=== PATIENT | male | born 1940 | race Caucasian/White ===

== ENCOUNTER 2016-12-20 07:07 | Inpatient (IN) | payer MEDICARE, OTHER ==
[2016-12-17 15:25] VITALS: BMI 23.0
[~2016-12-20 07:07] MED LIST: DEXAMETHASONE SOD PHOSPHATE 10 MG/ML 1 ML VIAL IV ONE; HEPARIN SODIUM,PORCINE 5,000 UNIT/ML 1 ML VIAL SQ ONE; HYDROmorphone 1 MG/ML 1 ML SYRINGE IVP PRN; LIDOCAINE 1% 20 ML VIAL (10MG/ML) FOR IV START INTRADERMA PRN; MIDAZOLAM 2 MG/2 ML VIAL IV PRN; ONDANSETRON 4 MG/2 ML VIAL IVP ONE; SCOPOLAMINE 1.5MG/72HR PATCH TRANSDERM ONE; ceFAZolin 2 GM in SODIUM CHLORIDE 0.9% 100 ML IVPB ONE
[2016-12-20] MEDS: LACTATED RINGERS 1,000 ML IV SCH (11:50)
[2016-12-20] MEDS ORDERED: LIDOCAINE 1% 20 ML VIAL (10MG/ML) FOR IV START INTRADERMA ONE (11:51)
--- NOTE | 2016-12-20 11:56 | P.GSHP ---
History of Present Illness H&P Date: 12/20/16 CHIEF COMPLAINT: Barretts esophagus and paraesophageal hiatal hernia. HISTORY OF PRESENT ILLNESS: The patient is a 76-year-old male with GERD including Barretts and paraesophageal hiatal hernia. He has completed a manometry and upper endoscopy. He now presents for surgical repair of his hiatal hernia. PAST MEDICAL HISTORY: Please see list. PAST SURGICAL HISTORY: Please see list. MEDICATIONS: Please see list. ALLERGIES: Please see list. SOCIAL HISTORY: No illicit drug use FAMILY HISTORY: No reports of Crohn disease or ulcerative colitis. REVIEW OF ORGAN SYSTEMS: CONSTITUTIONAL: GI: Decreased gastroesophageal reflux disease. History of Mane's. Constitutional: No fevers or chills. HEENT: Difficulty with hearing. No troubles with vision. Cardiovascular: Denies any current chest pain on exertion. : Increased urinary frequency. Musculoskeletal: Joint stiffness including back pain. Skin: History of squamous cell cancer. LYMPHATIC: The patient denies any lumps and bumps around the neck. ENDOCRINE: Denies any thyroid disorders. Denies any blood sugar glucose intolerance. RESPIRATORY: Denies pneumonia. Denies any troubles with breathing or dyspnea on exertion. NEUROLOGIC: Denies any numbness or tingling along the distal extremities. No seizure disorders or headaches. PSYCHIATRIC: Denies any depression or suicidal ideation. HEMATOLOGIC: Denies any abnormal bleeding or bruising. BREASTS: Denies any breast lumps, pain or nipple discharge. He has completed cardiac clearance. PHYSICAL EXAM: VITAL SIGNS: Stable GENERAL: Well-developed and pleasant in no acute distress. HEENT: No scleral icterus. Extraocular movements grossly intact. Moist buccal mucosa. NECK: Supple without lymphadenopathy. CHEST: Unlabored respirations. Equal bilateral excursions. CARDIOVASCULAR: Regular rate and rhythm. Distal 2+ pulses. ABDOMEN: Soft, nondistended. MUSCULOSKELETAL: No clubbing, cyanosis, or edema. ASSESSMENT: 1. Mane's esophagus. 2. Paraesophageal hiatal hernia. PLAN: 1. Benefits and risks of laparoscopic paraesophageal hiatal hernia repair with mesh placement were also reviewed. 2. Over night hospital inpatient was advised. 3. DVT prophylaxis. 4. Antibiotics prophylaxis. Past Medical History Past Medical History: GERD/Reflux Additional Past Medical History / Comment(s): myocardial bridging,occ. intermittent increased heart rate with increased activity,Mane's esophagus, has had 3 episodes urinary retention and had to be seen in ER over yrs-not sure of cause. 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.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) Past Anesthesia/Blood Transfusion Reactions: Motion Sickness Additional Past Anesthesia/Blood Transfusion Reaction / Comment(s): "very slow to wake up" Past Psychological History: No Psychological Hx Reported Smoking Status: Never smoker Past Alcohol Use History: None Reported Past Drug Use History: None Reported - Past Family History Mother Family Medical History: No Reported History Father Family Medical History: Myocardial Infarction ([place]) Medications and Allergies Home Medications Medication Instructions Recorded Confirmed Type Aspirin 81 mg PO DAILY 03/16/16 12/17/16 History Cholecalciferol [Vitamin D3] 2,000 unit PO DAILY 03/16/16 12/17/16 History Diltiazem HCl [Cardizem Cd] 120 mg PO QAM 03/16/16 12/17/16 History Multivitamins, Thera [Multivitamin] 1 tab PO DAILY 03/16/16 12/17/16 History Nitroglycerin Sl Tabs [Nitrostat] 0.4 mg SUBLINGUAL DIRECTED PRN 03/16/1603/30 History Omeprazole [PriLOSEC] 20 mg PO AC-BRKFST 12/17/16 12/17/16 History Allergies Allergy/AdvReac Type Severity Reaction Status Date / Time xeroform Allergy Intermediate Nausea & Uncoded 12/17/16 15:12 Vomiting Surgical - Exam Vital Signs Temp Pulse Resp BP Pulse Ox 97.0 F L 57 L 16 147/76 99 12/20/16 11:35 12/20/16 11:35 12/20/16 11:35 12/20/16 11:35 12/20/16 11:35
[2016-12-20] MEDS ORDERED: ACETAMINOPHEN IV (For NPO) 1,000 MG in EMPTY BAG 1 BAG IVPB STA (12:01)
[2016-12-20 12:12] LABS: Basophils % (A) 1 %; CH 31.6; CHCM 33.3; Eosinophils # (A) 0.1 k/uL (0-0.7); Eosinophils % (A) 1 %; HCT 47.3 % (39.0-53.0); HDW 2.59; HGB 15.2 gm/dL (13.0-17.5); Luc # (Auto) 0.18; Luc % (Auto) 3; Lymphocytes # (A) 1.4 k/uL (1.0-4.8); Lymphocytes % (A) 20 %; MCH 30.8 pg (25.0-35.0); MCHC 32.2 g/dL (31.0-37.0); MCV 95.4 fL (80.0-100.0); Mean Platelet Volume 6.7; Monocytes # (A) 0.3 k/uL (0-1.0); Monocytes % (A) 4 %; Neutrophils # (A) 5.1 k/uL (1.3-7.7); Neutrophils % (A) 72 %; RBC 4.95 m/uL (4.30-5.90); RDW 12.5 % (11.5-15.5); WBC 7.1 k/uL (3.8-10.6); WBC (Perox) 7.45
[2016-12-20 12:20] LABS: Anion Gap 9 mmol/L; Calcium 9.2 mg/dL (8.4-10.2); Carbon Dioxide 26 mmol/L (22-30); Chloride 106 mmol/L (98-107); Glucose 90 mg/dL (74-99); Non-African American GFR(MDRD) >60 (>60 ml/min/1.73 sqM); Sodium 141 mmol/L (137-145); Total Bilirubin 0.9 mg/dL (0.2-1.3); Total Protein 6.6 g/dL (6.3-8.2)
[2016-12-20 12:28] LABS: AST 27 U/L (17-59); Blood Urea Nitrogen 15 mg/dL (9-20); Potassium 5.1 mmol/L (3.5-5.1)
[2016-12-20] MEDS ORDERED: ACETAMINOPHEN IV (For NPO) 1,000 MG/100 ML VIAL ONE (12:28)
[2016-12-20] MEDS ORDERED: fentaNYL (PF) 50 MCG/ML 2 ML AMP ONE (12:28)
[2016-12-20] MEDS ORDERED: LIDOCAINE 1% INJ 10MG/ML (20 ML MDV) ONE (12:28)
[2016-12-20] MEDS ORDERED: ROCURONIUM BROMIDE 10 MG/ML 10 ML VIAL IV ONE (12:28)
[2016-12-20] MEDS ORDERED: GLYCOPYRROLATE 0.2 MG/ML 2 ML VIAL ONE (12:28)
[2016-12-20] MEDS ORDERED: PROPOFOL 10 MG/ML 20 ML VIAL IV ONE (12:28)
[2016-12-20] MEDS ORDERED: PHENYLEPHRINE-0.9% NACL SYG 1 MG/10 ML SYRINGE ONE (12:28)
[2016-12-20] MEDS ORDERED: MIDAZOLAM 2 MG/2 ML VIAL ONE (12:28)
[2016-12-20] MEDS ORDERED: NEOSTIGMINE 1 MG/ML 10 ML VIAL ONE (12:28)
[2016-12-20 12:29] LABS: ALT 35 U/L (21-72); Alkaline Phosphatase 51 U/L (38-126)
[2016-12-20] MEDS ORDERED: BUPIVACAIN-EPI 0.25%-1:200,000 30 ML VIAL SQ ONE (13:04)
[2016-12-20] MEDS ORDERED: LACTATED RINGERS 1,000 ML IV ONE ×2 (13:52→14:55)
[2016-12-20] MEDS ORDERED: ONDANSETRON 4 MG/2 ML VIAL IVP PRN (15:19)
[2016-12-20] MEDS ORDERED: NALOXONE 0.4 MG/ML 1 ML VIAL IV PRN (15:19)
[2016-12-20] MEDS ORDERED: HYOSCYAMINE ORAL DROPS 1.875 MG/15 ML BOTTLE PO PRN (15:19)
[2016-12-20] MEDS ORDERED: SIMETHICONE 40 MG/0.6 ML DROPS 2,000 MG/30 ML BOTTLE PO PRN (15:19)
[2016-12-20] MEDS ORDERED: HYDROmorphone 1 MG/ML 1 ML SYRINGE IVP PRN (15:19)
--- NOTE | 2016-12-20 15:19 | P.OP ---
Date of Procedure: 12/20/16 Description of Procedure: SURGEON: CARON CANAS MD NURSING HOME ADMISSIONS DIRECTOR: None. PREOPERATIVE DIAGNOSES: 1. Mane's esophagus. 2. Paraesophageal hiatal hernia, incarcerated with intermittent obstruction. 3. Epigastric abdominal pain, intermittent. 4. Gastroesophageal reflux disease. 5. Migraines. 6. Hypertensive heart disease with cardiomyopathy. 7. Previous cardiac catheterization with placement of cardiac stent. POSTOPERATIVE DIAGNOSES: 1. Mane's esophagus, long segment. 2. Paraesophageal hiatal hernia, incarcerated with intermittent obstruction, 5 cm. 3. Epigastric abdominal pain, intermittent. 4. Gastroesophageal reflux disease. 5. Migraines. 6. Hypertensive heart disease with cardiomyopathy. 7. Previous cardiac catheterization with placement of cardiac stent. OPERATION: 1. Laparoscopic reduction and repair of incarcerated paraesophageal hiatal hernia with mesh, Bard Biopatch A 8 x 8 cm. 2. Intraoperative esophagogastroduodenoscopy with biopsies along antrum. ANESTHESIA: General with 30 mL 0.25% Marcaine with epinephrine. ESTIMATED BLOOD LOSS: 5 mL COMPLICATIONS: None. INDICATIONS: The patient is a 76-year-old male with long-standing history of gastroesophageal reflux disease. An upper endoscopy demonstrating a long segment Mane's esophagus including a incarcerated paraesophageal diaphragmatic hiatal hernia. Intraoperative esophagogastroduodenoscopy demonstrated a paraesophageal hiatal hernia with incarceration. He completed a manometry demonstrating esophageal length over 3.0 cm and pressures over 20 mmHg pressure. Surgical intervention with a paraesophageal hiatal hernia repair and mesh was described. Risks and benefits including but not limited to collapse of the lung, dysphagia, recurrence were reviewed in detail. Informed consent was obtained as all benefits and risks were described. Separately, as the patient had a suspicious history of malignant hyperthermia, he was prepped accordingly per anesthesia. DESCRIPTION: Patient was brought into the operating room, laid in supine position on a split-leg table. After general induction, the abdomen was prepped and draped in a standard sterile fashion using ChloraPrep. An Ioban drape was placed. Meraz catheter was also placed. A timeout protocol was confirmed with the surgical team, for which the patient's name, procedure to be performed including DVT prophylaxis with bilateral SCDs, and preoperative antibiotics were also confirmed. From the xiphoid to the umbilicus, an incision was made approximately 15 cm distal and off to the left of the xiphoid using #11 blade after localizing the skin with anesthetic. A 0-degree 5 mm laparoscopic trocar entry was performed to enter the peritoneal cavity. Diagnostic laparoscopy demonstrated no hepatomegaly. Additionally, a large 5 cm diaphragmatic paraesophageal hiatal hernia was identified incorporating the gastric cardia into the thoracic cavity. A 5 mm trocar was placed along the left lateral costal margin followed by a 10 mm port along the left midclavicular line. A Octavio medium-sized liver retractor was placed below the xiphoid and held in place using an iron technical support intern. The patient was placed in steep reverse Trendelenburg position. Initial attention was brougth at the hiatus where a 5-cm defect of the anterior hiatus was measured. Circumferentially, the phrenoesophageal ligament and the hiatus were mobilized such that the right and left trish were visualized. The final defect was 5 cm in size. The distal esophagus intra-abdominal length of at least 3 cm was obtained as moderate dissection into the chest was performed up to the aortic arch. The bilateral vagi nerves were identified and freed from harm during this portion of dissection. To adequately mobilize the posterior esophagus, the greater curvature of the stomach was mobilized along the short gastrics. The hiatus was reapproximated using 2-0 Surgidac on an Endo Stitch with a [id number] suture and two single stitches posteriorly. Bard Biopatch A 8 x 8 cm was cut in a "taylor-hole fashion" in place as an onlay and buttressed to the posterior hiatal hernia repair. The mesh was tacked to the right and left trish were using 2-0 Surgidac. The hiatal repair was consistent with a 56-Green[place]ic bougie as a fenestrated grasper had easily passed through the repair. I then went to the head of the bed to do an intraoperative esophagogastroduodenoscopy. The squamocolumnar junction laid into the intra- abdominal cavity. Additionally no injury to the stomach or esophagus was identified. No gastric or duodenal ulcers were found. Long segment Mane's esophagus starting from the mid esophagus was identified. The squamocolumnar junction was obliterated by Mane's as well. The stomach was desufflated. This concluded endoscopic portion procedure. All instruments and pneumoperitoneum were evacuated from the abdominal cavity. The incisions were reapproximated using 4-0 Monocryl for the subcuticular skin. Total of 30 mL 0.25% Marcaine with epinephrine was infiltrated to all wounds for postop analgesia. Dermabond was applied to the skin. At the end of the procedure, needle, sponge, and instrument count was verified correct by hazardous material technician. Total of 5 mL blood loss. Intraoperative films were taken and shared with the patient's family. FINDINGS: 1. 5 cm paraesophageal hiatal hernia, incarcerated type. 2. Bard Biopatch A 8 x 8 cm used for hernioplasty of the hiatus. 3. Long segment Mane's esophagus mid esophagus. 4. Hiatus repair consistent with 56-Green[place]ic bougie.
[2016-12-20] MEDS ORDERED: NITROGLYCERIN SL TABS 0.4 MG TAB SUBLINGUAL PRN (15:22)
[2016-12-20] MEDS ORDERED: TAMSULOSIN 0.4 MG CAP.ER.24H PO STA (18:37)
[2016-12-20] MEDS: 0.9% NACL WITH KCL 40 MEQ/L 1,000 ML IV SCH (19:35)
[2016-12-20] MEDS ORDERED: hydrALAZINE HCL 25 MG TAB PO STA (19:46)
--- NOTE | 2016-12-20 20:31 | P.PN ---
Subjective Principal diagnosis: Mane's esophagus The patient is postop day 0 status post laparoscopic paraesophageal hiatal hernia. He had done well intraoperatively. In the recovery room, per communication with his nurse, he was straight cathed. Now he has urinary retention. Despite 3 trials of placing an 18-Croatian as well as 16-Croatian coud catheter and 8-Croatian pediatric latex catheter, Meraz catheter cannot pass. No reports of nausea and vomiting otherwise. Incidentally, the patient's is at bedside. H reports previous urinary problems where he has seen a urologist within the last month. No additional medications were prescribed at that time. Objective - Vital Signs Vital signs: Vital Signs Temp 98.2 F 12/20/16 18:20 Pulse 86 12/20/16 18:20 Resp 16 12/20/16 16:40 BP 163/89 12/20/16 18:20 Pulse Ox 96 12/20/16 18:20 Intake & Output 12/20/16 12/20/16 12/21/16 06:59 18:59 06:59 Intake Total 2500 Output Total 205 Balance 2295 Intake: IV 2500 Output: Urine 200 Estimated Blood Loss 5 - Exam GENERAL: Well developed and in no acute distress. Pleasant. HEENT: No sclera icterus. Extraocular movements grossly intact. Moist buccal mucosa. Head is atraumatic, normocephalic. Hears conversational speech. No nasal drainage. NECK: Supple without lymphadenopathy. No JV distention. CHEST: Non-labored respirations and equal bilateral excursions. CARDIOVASCULAR: Regular rate and rhythm. Palpable 2+ radial pulses. ABDOMEN: Soft. Nondistended. Laparoscopic sites intact without infection or redness. MUSCULOSKELETAL: No clubbing, cyanosis or edema. NEUROLOGIC: No focal or lateralizing signs. PSYCH: Appropriate affect. Alert and oriented to person, place and time. : Urine with hematuria. - Labs CBC & Chem 7: 12/20/16 12:00 12/20/16 12:00 Assessment and Plan (1) Paraesophageal hernia Status: Chronic (2) Mane esophagus Status: Chronic (3) Reflux esophagitis Status: Chronic (4) Cardiomyopathy due to hypertension, without heart failure Status: Chronic (5) Hypertensive heart disease Status: Chronic (6) Urinary retention due to benign prostatic hyperplasia Status: Chronic (7) Urinary retention with incomplete bladder emptying Status: Acute (8) Status post repair of paraesophageal diaphragmatic hernia Status: Acute Plan: 1. Urgent urological consultation for placement of Meraz catheter and severe urinary retention. 2. Post-Tosin diet. 3. DVT prophylaxis. 4. Antibiotics prophylaxis. 5. Hydralazine for blood pressure.
[2016-12-20] MEDS ORDERED: LEVOFLOXACIN 500MG-D5W PMX 500 MG in DEXTROSE/WATER 1 100ML.BAG IVPB STA (21:19)
[2016-12-20] MEDS: ceFAZolin 2 GM in SODIUM CHLORIDE 0.9% 100 ML IVPB SCH (21:40)
[2016-12-20] MEDS: FAMOTIDINE 20 MG TAB PO SCH (21:40)
[2016-12-20] MEDS: HEPARIN SODIUM,PORCINE 5,000 UNIT/ML 1 ML VIAL SQ SCH (21:48)
[2016-12-21] MEDS: HYDROcodone/APAP 15 ML SOLUTION PO PRN ×2 (02:43→13:20)
[2016-12-21] MEDS: ceFAZolin 2 GM in SODIUM CHLORIDE 0.9% 100 ML IVPB SCH (04:51)
[2016-12-21] MEDS: LACTATED RINGERS 1,000 ML IV SCH (05:58)
--- NOTE | 2016-12-21 06:21 | CONS ---
DATE OF CONSULTATION: 12/20/2016 REASON FOR CONSULTATION: Postoperative urinary retention. The patient is a 76-year-old male with a history of a paraesophageal hernia and Mane's esophagitis who underwent a paraesophageal hernia repair this afternoon. The patient was unable to void in the recovery room and was in and out cathed for approximately 200 mL. He remained unable to void but it has been impossible to insert a catheter to drain his bladder. I was asked to see the patient for further evaluation. The patient apparently has had 3 previous episodes of urinary retention. One of these episodes occurred 2 years ago. He usually voids every 2 hours during the day and twice at night. He has some hesitancy if he allows his bladder to come to full. He does not strain to void and usually feels he voids completely. He has no history of urinary tract infection, other than associated with placement of the catheter. There is no history of gross hematuria. Previously underwent transurethral needle ablation of the prostate performed by Dr. Turpin. The patient's past medical history is relatively unremarkable. His only medications on admission were aspirin, Cardizem and Prilosec. He takes nitroglycerin p.r.n.. He apparently had previously suffered a myocardial infarction. He is allergic to XEROFORM, which has caused nausea. He has previously undergone multiple surgeries on his right hand and the transurethral needle ablation of the prostate. There is no history of hypertension or diabetes. Physical exam reveals a well-developed 76-year-old appeared moderately uncomfortable due to suprapubic fullness. Blood pressure 163/89. ABDOMEN: There is some distention in the suprapubic area and tenderness to palpation. GENITALIA: Penis is uncircumcised. There is no blood at the urethral meatus. Both testicles are descended. Immediately following my examination, I attempted to insert a 14-Zimbabwean Coude catheter under sterile technique, but this met with obstruction in the region of the bladder neck. A 0.035 angled Glidewire was then successfully passed through the urethra and into the bladder. The Coude catheter was modified with a slit at the tip and advanced over the Glidewire and into the bladder. A large amount of clear urine drained. Catheter was connected to gravity drainage. IMPRESSION: Postoperative urinary retention, most likely related to difficulty in relaxing the bladder neck following surgery. RECOMMENDATION: The patient has been started on tamsulosin and this should be continued. The patient's catheter could be removed in the morning and if he is able to void with an acceptably low postvoid residual, he should be able to be discharged without a catheter. I would suggest leaving him on the tamsulosin for at least another few days if he is able to void. Thank you for allowing me to participate in the care of this patient. FLOWER
--- NOTE | 2016-12-21 07:40 | P.PN ---
Subjective Principal diagnosis: Mane's esophagus The patient is postop day 1 status post laparoscopic paraesophageal hiatal hernia. Overnight he had acute urinary retention for which a catheter was placed by urology. This morning he feels well. He is on Flomax now. No reports of dysphagia. Objective - Vital Signs Vital signs: Vital Signs Temp 98.1 F 12/21/16 02:15 Pulse 86 12/21/16 02:15 Resp 16 12/21/16 02:15 BP 106/53 12/21/16 02:15 Pulse Ox 95 12/21/16 02:15 Intake & Output 12/20/16 12/21/16 12/21/16 18:59 06:59 18:59 Intake Total 2500 975 Output Total 205 1300 Balance 2295 -325 Intake: IV 2500 975 0.9% NaCl with KCl 40 Meq 675 /l 1,000 ml @ 75 mls/hr IV .[id number] GISSELL Rx#: [id number] Levofloxacin 500Mg-D5w 100 Pmx 500 mg In Dextrose/ Water 1 100ml.bag @ 100 mls/hr IVPB ONCE STA Rx#: [id number] ceFAZolin 2 gm In Sodium 200 Chloride 0.9% 100 ml @ 100 mls/hr IVPB ONCE ONE Rx#:[id number] Output: Urine 200 1300 Uretheral (Meraz) 1100 Estimated Blood Loss 5 Other: Voiding Method Indwelling Catheter - Exam GENERAL: Well developed and in no acute distress. Pleasant. HEENT: No sclera icterus. Extraocular movements grossly intact. Moist buccal mucosa. Head is atraumatic, normocephalic. Hears conversational speech. No nasal drainage. NECK: Supple without lymphadenopathy. No JV distention. CHEST: Non-labored respirations and equal bilateral excursions. CARDIOVASCULAR: Regular rate and rhythm. Palpable 2+ radial pulses. ABDOMEN: Soft. Nondistended. Laparoscopic sites intact without infection or redness. MUSCULOSKELETAL: No clubbing, cyanosis or edema. NEUROLOGIC: No focal or lateralizing signs. PSYCH: Appropriate affect. Alert and oriented to person, place and time. : Urine clear in Meraz catheter bag. - Labs CBC & Chem 7: 12/20/16 12:00 12/20/16 12:00 Assessment and Plan (1) Paraesophageal hernia Status: Chronic (2) Mane esophagus Status: Chronic (3) Reflux esophagitis Status: Chronic (4) Cardiomyopathy due to hypertension, without heart failure Status: Chronic (5) Hypertensive heart disease Status: Chronic (6) Urinary retention due to benign prostatic hyperplasia Status: Chronic (7) Urinary retention with incomplete bladder emptying Status: Acute (8) Status post repair of paraesophageal diaphragmatic hernia Status: Acute Plan: 1. After discussion with urology, recommendation for removal of Meraz catheter this morning with bladder scan post void residual per recommendations. 2. He'll be discharged home with Flomax. 3. He is pending completion upper GI. 4. Anticipated discharge home today after studies and tolerating diet including spontaneous void.
[2016-12-21] MEDS: HEPARIN SODIUM,PORCINE 5,000 UNIT/ML 1 ML VIAL SQ SCH (07:49)
[2016-12-21] MEDS: FAMOTIDINE 20 MG TAB PO SCH (07:49)
[2016-12-21 07:52] LABS: Basophils % (A) 0 %; CH 31.6; CHCM 33.1; Eosinophils % (A) 0 %; HCT 45.9 % (39.0-53.0); HDW 2.51; HGB 14.6 gm/dL (13.0-17.5); Luc # (Auto) 0.14; Luc % (Auto) 1; Lymphocytes # (A) 0.5 k/uL (1.0-4.8); Lymphocytes % (A) 5 %; MCH 30.5 pg (25.0-35.0); MCHC 31.8 g/dL (31.0-37.0); MCV 95.8 fL (80.0-100.0); Mean Platelet Volume 6.7; Monocytes # (A) 0.5 k/uL (0-1.0); Monocytes % (A) 5 %; Neutrophils # (A) 9.7 k/uL (1.3-7.7); Neutrophils % (A) 89 %; RBC 4.79 m/uL (4.30-5.90); RDW 12.6 % (11.5-15.5); WBC 10.9 k/uL (3.8-10.6); WBC (Perox) 11.26
[2016-12-21 08:17] LABS: Anion Gap 10 mmol/L; Blood Urea Nitrogen 15 mg/dL (9-20); Calcium 8.8 mg/dL (8.4-10.2); Carbon Dioxide 24 mmol/L (22-30); Chloride 106 mmol/L (98-107); Non-African American GFR(MDRD) >60 (>60 ml/min/1.73 sqM); Phosphorous 4.1 mg/dL (2.5-4.5); Sodium 140 mmol/L (137-145)
[2016-12-21] MEDS ORDERED: TAMSULOSIN 0.4 MG CAP.ER.24H PO SCH (08:30)
--- NOTE | 2016-12-21 08:52 | FL ---
EXAMINATION TYPE: FL UGI DATE OF EXAM: 12/21/2016 8:23 AM COMPARISON: NONE HISTORY: 76-year-old male status post hiatal hernia repair with Tosin fundoplication. TECHNIQUE: Single contrast exam utilizing 50 mL Omnipaque 350. Total fluoroscopy time: 27 seconds. FINDINGS: The patient swallowed oral contrast without difficulty or delay. There is mild tertiary peristalsis b ut otherwise normal course and caliber to the esophagus. There is good flow of contrast from the esop hagus into the stomach with postsurgical changes of Tosin fundoplication. There is no extravasation of contrast to suggest leak. No postoperative free air seen below the hemidiaphragms. IMPRESSION: No evidence for leak or obstruction status post Tosin fundoplication.
[2016-12-21] MEDS ORDERED: ACETAMINOPHEN TAB 325 MG TAB PO PRN (08:53)
[2016-12-21] MEDS ORDERED: ASPIRIN 81 MG CHEW PO SCH (09:00)
[2016-12-21] MEDS ORDERED: PANTOPRAZOLE 40 MG/10 ML VIAL IV SCH (09:00)
[2016-12-21] MEDS ORDERED: DILTIAZEM CD 120 MG CAP.ER.24H PO SCH (09:00)
[2016-12-21] MEDS: 0.9% NACL WITH KCL 40 MEQ/L 1,000 ML IV SCH (09:05)
[2016-12-21 13:44] VITALS: BP 134/65; PULSE 80; RESP 18; TEMP 98.2
--- NOTE | 2016-12-21 16:55 | P.DS ---
Providers Date of admission: 12/20/16 10:59 Expected date of discharge: 12/21/16 Attending physician: Miri Mclean Consults: 12/20/16 20:24 Consult Physician Stat Consulting Provider: Nils Kaplan Consult Reason/Comments: Unable to pass catheter for retention Do you want consulting provider notified?: Already Contacted Primary care physician: Saurabh Jarquin - Discharge Diagnosis(es) (1) Paraesophageal hernia Status: Chronic (2) Mane esophagus Status: Chronic (3) Reflux esophagitis Status: Chronic (4) Cardiomyopathy due to hypertension, without heart failure Status: Chronic (5) Hypertensive heart disease Status: Chronic (6) Urinary retention due to benign prostatic hyperplasia Status: Chronic (7) Urinary retention with incomplete bladder emptying Status: Acute (8) Status post repair of paraesophageal diaphragmatic hernia Status: Acute Hospital Course: POSTOPERATIVE DIAGNOSES: 1. Mane's esophagus, long segment. 2. Paraesophageal hiatal hernia, incarcerated with intermittent obstruction, 5 cm. 3. Epigastric abdominal pain, intermittent. 4. Gastroesophageal reflux disease. 5. Migraines. 6. Hypertensive heart disease with cardiomyopathy. 7. Previous cardiac catheterization with placement of cardiac stent. The patient is a 76-year-old gentleman with long-standing history of Mane's esophagus including gastroesophageal reflux disease. He completed a manometry and upper endoscopy demonstrating a large paraesophageal hiatal hernia. He underwent surgical repair however he had developed acute urinary retention requiring placement of a milligan catheter by the urologist. He had been placed on Flomax. He was tolerating diet. Prior to discharge she was stable. He will follow-up with myself including urologist as an outpatient in 3-5 days. Postop Tosin diet was reviewed in detail. Pertinent Studies: Esophagram demonstrated no acute obstruction. Procedures: OPERATION: 1. Laparoscopic reduction and repair of incarcerated paraesophageal hiatal hernia with mesh, [place] Biopatch A 8 x 8 cm. 2. Intraoperative esophagogastroduodenoscopy with biopsies along antrum. Patient Condition at Discharge: Stable Plan - Discharge Summary Discharge Medication List Aspirin 81 mg PO DAILY 03/16/16 [History] Cholecalciferol [Vitamin D3] 2,000 unit PO DAILY 03/16/16 [History] Diltiazem HCl [Cardizem Cd] 120 mg PO QAM 03/16/16 [History] Multivitamins, Thera [Multivitamin] 2 tab PO BID 03/16/16 [History] Nitroglycerin Sl Tabs [Nitrostat] 0.4 mg SUBLINGUAL Q5M PRN 03/16/16 [History] Omeprazole [PriLOSEC] 20 mg PO AC-BRKFST 12/17/16 [History] Acetaminophen Tab [Tylenol Tab] 500 - 1,000 mg PO Q6H PRN 12/26/16 [History] Follow up Appointment(s)/Referral(s): Miri Mclean MD [STAFF PHYSICIAN] - 12/25/16 3:00 pm Nils Kaplan MD [STAFF PHYSICIAN] - 3 Days (Phones at office not working. Call office on 12/24/2016 for follow up on 12/25/2016.) Patient Instructions/Handouts: *Surgery [facility] - Milligan Catheter Instructions, Milligan Catheter Placement and Care (DC), Urinary Leg Bag (GEN), Full Liquid Diet (GEN), Laparoscopic Hiatal Hernia Repair (DC) Activity/Diet/Wound Care/Special Instructions: No lifting over 4 pounds in 4 weeks. Liquid diet. No solid foods until cleared by surgeon. Discharge Disposition: HOME SELF-CARE
== END 2016-12-21 17:49 | disposition home or self-care (01) | DRG 327 ==
LOC: 2ORWHC 10:59 → EDSTATUS 13:30 → 3SUR 15:34
PROVIDERS: ADMIT Surgery Plastic and Reconstructive Surgery; ATTEND Surgery Plastic and Reconstructive Surgery
PROC: 0BUR4JZ (ICD-10-PCS; principal; 2016-12-20 13:00)
PROC: 0BUS4JZ (ICD-10-PCS; principal; 2016-12-20 13:00)
PROC: 0DJ08ZZ Inspection of Upper Intestinal Tract, Via Natural or Artificial Opening Endoscopic (ICD-10-PCS; principal; 2016-12-20 13:00)
DX: K22.70 Barrett's esophagus without dysplasia (principal); I43 Cardiomyopathy in diseases classified elsewhere; I11.9 Hypertensive heart disease without heart failure; K44.0 Diaphragmatic hernia with obstruction, without gangrene; G43.909 Migraine, unspecified, not intractable, without status migrainosus; I25.2 Old myocardial infarction; K21.0 Gastro-esophageal reflux disease with esophagitis; N40.1 Benign prostatic hyperplasia with lower urinary tract symptoms; R33.8 Other retention of urine; Z79.82 Long term (current) use of aspirin; Z82.49 Family history of ischemic heart disease and other diseases of the circulatory system; Z95.5 Presence of coronary angioplasty implant and graft; Z79.899 Other long term (current) drug therapy
CPT/HCPCS: 74240; 80051; 80053; 82310; 82565; 83735; 84100; 84520; 85025

== ENCOUNTER 2016-12-26 10:13 | Emergency (ER) | payer MEDICARE, OTHER ==
--- NOTE | 2016-12-26 10:43 | ED ---
General Adult HPI - General Stated complaint: Urinary Retention Time Seen by Provider: 12/26/16 10:15 Source: police, EMS, RN notes reviewed Mode of arrival: EMS - History of Present Illness Initial comments: This is a 76-year-old male who presents to the emergency department from [facility]. Patient comes in today because he has been having urinary retention. Patient recently had surgery he had a Meraz placed and once the Meraz was removed 1 day ago he has been unable to urinate. He went to [facility] they were unable to place a Meraz so they sent him down here to see Dr. Cook he was available. Patient complains of suprapubic abdominal pain is quite significant maladies but I am able to urinate for a while. Patient denies any fever patient denies any back pain. - Related Data Home Medications Medication Instructions Recorded Confirmed Aspirin 81 mg PO DAILY 03/16/16 12/26/16 Cholecalciferol [Vitamin D3] 2,000 unit PO DAILY 03/16/16 12/26/16 Diltiazem HCl [Cardizem Cd] 120 mg PO QAM 03/16/16 12/26/16 Multivitamins, Thera [Multivitamin] 2 tab PO BID 03/16/16 12/26/16 Nitroglycerin Sl Tabs [Nitrostat] 0.4 mg SUBLINGUAL Q5M PRN 03/16/16 12/26/16 Omeprazole [PriLOSEC] 20 mg PO AC-BRKFST 12/17/16 12/26/16 Acetaminophen Tab [Tylenol Tab] 500 - 1,000 mg PO Q6H PRN 12/26/16 12/26/16 Allergies Allergy/AdvReac Type Severity Reaction Status Date / Time xeroform Allergy Intermediate Nausea & Uncoded 12/20/16 17:20 Vomiting Review of Systems ROS Statement: Those systems with pertinent positive or pertinent negative responses have been documented in the HPI. ROS Other: All systems not noted in ROS Statement are negative. Past Medical History Past Medical History: GERD/Reflux Additional Past Medical History / Comment(s): myocardial bridging,occ. intermittent increased heart rate with increased activity,Mane's esophagus, has had 3 episodes urinary retention and had to be seen in ER over yrs-not sure of cause. 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 Patient is nontoxic and well- hydrated and is in moderate distress. ENT: Neck is soft and supple. No significant lymphadenopathy is noted. Oropharynx is clear. Moist mucous membranes. Neck has full range of motion without eliciting any pain. EYES: The sclera were anicteric and conjunctiva were pink and moist. Extraocular movements were intact and pupils were equal round and reactive to light. Eyelids were unremarkable. PULMONARY: Unlabored respirations. Good breath sounds bilaterally. No audible rales rhonchi or wheezing was noted. CARDIOVASCULAR: There is a regular rate and rhythm without any murmurs gallops or rubs. ABDOMEN: Suprapubic tenderness and distention SKIN: Skin is clear with no lesions or rashes and otherwise unremarkable. NEUROLOGIC: Patient is alert and oriented x3. Cranial nerves II through XII are grossly intact. Motor and sensory are also intact. Normal speech, volume and content. Symmetrical smile. MUSCULOSKELETAL: Normal extremities with adequate strength and full range of motion. LYMPHATICS: No significant lymphadenopathy is noted PSYCHIATRIC: Normal psychiatric evaluation. Course Vital Signs 12/26/16 10:15 Temperature 97.0 F L Pulse Rate 79 Respiratory 16 Rate Blood Pressure 157/84 O2 Sat by Pulse 90 L Oximetry Procedures - Catheter Insertion (Urinary) Indications: to alleviate urinary retention Prophylactic Antibiotics Given: Yes Bladder Scan/US before Catheterization: No Preparation: Povidone-Iodine Type of Catheter Inserted: Meraz, coude tip Catheter Bulgarian Size: 14 Catheter Balloon Size (mLs): 10 Results: successfully catheterized-immediate flow Patient Tolerated Procedure: well Complications: none Medical Decision Making - Lab Data Lab Results 12/26/16 Range/Units 10:33 Urine Color Light Yellow Urine Appearance Clear (Clear) Urine pH 6.0 (5.0-8.0) Ur Specific [place] 1.003 (1.001-1.035) Urine Protein Negative (Negative) Urine Glucose (UA) Negative (Negative) Urine Ketones Negative (Negative) Urine Blood Moderate H (Negative) Urine Nitrite Negative (Negative) Urine Bilirubin Negative (Negative) Urine Urobilinogen <2.0 (<2.0) mg/dL Ur Leukocyte Esterase Negative (Negative) Urine RBC 4 (0-5) /hpf Urine WBC 1 (0-5) /hpf Disposition Clinical Impression: Urinary retention Disposition: HOME SELF-CARE Condition: Good Instructions: Urinary Retention in Men (ED) Referrals: Saurabh Jarquin MD [Primary Care Provider] - 1-2 days Time of Disposition: 11:20
[2016-12-26 11:04] LABS: Appearance,Urine Clear (Clear); Bilirubin,Urine Negative (Negative); Glucose,Urine (UA) Negative (Negative); Ketones,Urine Negative (Negative); Leukocyte Esterase,Urine Negative (Negative); Nitrite,Urine Negative (Negative); Particle Count 806; Protein,Urine Negative (Negative); RBC,Urine 4 /hpf (0-5); Specific Gravity,Urine 1.003 (1.001-1.035); UA Billing (MACRO vs. MICRO) MICRO; Urobilinogen,Urine <2.0 mg/dL (<2.0); WBC,Urine 1 /hpf (0-5)
[2016-12-26 12:11] VITALS: BP 140/68; PULSE 78; RESP 20; TEMP 98
== END 2016-12-26 12:00 | disposition home or self-care (01) ==
LOC: EC 10:13
DX: R33.9 Retention of urine, unspecified (principal); R10.9 Unspecified abdominal pain; K21.9 Gastro-esophageal reflux disease without esophagitis; Q24.5 Malformation of coronary vessels; Z79.82 Long term (current) use of aspirin; Z79.899 Other long term (current) drug therapy; Z91.048 Other nonmedicinal substance allergy status
CPT/HCPCS: 51701; 81001; 99283; 96365; J0696

== ENCOUNTER 2021-04-19 07:23 | Day surgery (SDC) | payer MEDICARE, OTHER ==
[2021-04-14 11:22] VITALS: BMI 23.7
[~2021-04-19 07:23] MED LIST changes: -DEXAMETHASONE SOD PHOSPHATE 10 MG/ML 1 ML VIAL IV ONE; -HEPARIN SODIUM,PORCINE 5,000 UNIT/ML 1 ML VIAL SQ ONE; -HYDROmorphone 1 MG/ML 1 ML SYRINGE IVP PRN; +LACTATED RINGERS 1,000 ML IV SCH; +LIDOCAINE 1% (10MG/ML) FOR IV START INTRADERMA PRN; -LIDOCAINE 1% 20 ML VIAL (10MG/ML) FOR IV START INTRADERMA PRN; -MIDAZOLAM 2 MG/2 ML VIAL IV PRN; -ONDANSETRON 4 MG/2 ML VIAL IVP ONE; -SCOPOLAMINE 1.5MG/72HR PATCH TRANSDERM ONE; -ceFAZolin 2 GM in SODIUM CHLORIDE 0.9% 100 ML IVPB ONE
[2021-04-19 07:53] VITALS: TEMP 97.2
--- NOTE | 2021-04-19 08:13 | P.GSHP ---
History of Present Illness H&P Date: 04/19/21 CHIEF COMPLAINT: GERD and colon screen HISTORY OF PRESENT ILLNESS: The patient is a 80-year-old male who presents with gastroesophageal reflux disease and need for colon screen. Upper and lower endoscopy were offered for further evaluation and management. PAST MEDICAL HISTORY: Please see list. PAST SURGICAL HISTORY: Please see list. MEDICATIONS: Please see list. ALLERGIES: Please see list. SOCIAL HISTORY: No illicit drug use FAMILY HISTORY: No reports of Crohn disease or ulcerative colitis. REVIEW OF ORGAN SYSTEMS: CONSTITUTIONAL: No reports of fevers or chills. GI: Denies any blood in stools or constipation. PHYSICAL EXAM: VITAL SIGNS: Stable GENERAL: Well-developed pleasant in no acute distress. HEENT: No scleral icterus. Extraocular movements grossly intact. Moist buccal mucosa. NECK: Supple without lymphadenopathy. CHEST: Unlabored respirations. Equal bilateral excursions. CARDIOVASCULAR: Regular rate and rhythm. Distal 2+ pulses. ABDOMEN: Soft, nondistended. MUSCULOSKELETAL: No clubbing, cyanosis, or edema. ASSESSMENT: 1. Gastroesophageal reflux disease 2. Colon screen. PLAN: 1. Recommend proceeding with an upper and lower endoscopy Past Medical History Past Medical History: GERD/Reflux, Prostate Disorder Additional Past Medical History / Comment(s): myocardial bridging, occ. 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) Past Anesthesia/Blood Transfusion Reactions: Motion Sickness Additional Past Anesthesia/Blood Transfusion Reaction / Comment(s): possible malignant hyperthermia, spouse states he had fever in post op and was "very slow to wake up" Smoking Status: Never smoker - Past Family History Mother Family Medical History: No Reported History Father Family Medical History: Myocardial Infarction ([place]) Medications and Allergies Home Medications Medication Instructions Recorded Confirmed Type Aspirin 81 mg PO DAILY 03/16/16 04/19/21 History Diltiazem HCl [Cardizem Cd] 120 mg PO QAM 03/16/16 04/19/21 History Nitroglycerin Sl Tabs [Nitrostat] 0.4 mg SUBLINGUAL Q5M PRN 03/16/16 04/19/21 History Finasteride [Proscar] 5 mg PO QAM 04/14/21 04/19/21 History Isosorbide Mononitrate [Isosorbide 30 mg PO PC-SUPPER 04/14/21 04/19/21 History Mononitrate ER] Omeprazole 40 mg PO DAILY 04/14/21 04/19/21 History Allergies Allergy/AdvReac Type Severity Reaction Status Date / Time xeroform Allergy Intermediate Nausea & Uncoded 04/19/21 07:43 Vomiting Surgical - Exam Vital Signs Temp Pulse Resp BP Pulse Ox 97.2 F L 73 18 159/80 98 04/19/21 07:52 04/19/21 07:52 04/19/21 07:52 04/19/21 07:52 04/19/21 07:52
[2021-04-19] MEDS ORDERED: PROPOFOL 10 MG/ML 20 ML VIAL IV ONE (08:15)
[2021-04-19] MEDS ORDERED: LIDOCAINE 1% INJ 10MG/ML (20 ML MDV) ONE (08:15)
--- NOTE | 2021-04-19 08:28 | P.PCN ---
Date of Procedure: 04/19/21 Description of Procedure: PREOPERATIVE DIAGNOSIS: Gastroesophageal reflux disease. History of hiatal hernia status post repair Mane's esophagus POSTOPERATIVE DIAGNOSIS: Mane's esophagus Gastritis History of hiatal hernia status post repair OPERATION: Esophagogastroduodenoscopy with biopsies along antrum and esophagus SURGEON: Miri Mclean MD ANESTHESIA: MAC. INDICATIONS: The patient is a 80-year-old female who presents with a history of reflux disease. Benefits and risks of the procedure were described. Informed consent was obtained. DESCRIPTION: The patient was brought into the endoscopy suite and laid in the left lateral decubitus position. An Olympus gastroscope was passed along the posterior oropharynx down to the distal esophagus where the squamocolumnar junction was encountered at 37 cm from the incisors. The stomach was entered and no bile reflux was found. Additional findings are listed below. Biopsies with cold forceps were obtained of the antrum. The first through third portion of the duodenum was examined and unremarkable. Retroflexion of the scope confirmed H ill grade 2 lower esophageal valve. The squamocolumnar junction demonstrated LA grade D erosive esophagitis. The stomach was desufflated. The patient tolerated the procedure well. FINDINGS: Squamocolumnar junction 29 cm from the incisors obliterated by Mane's esophagus Diaphragmatic hiatus at 37 cm. No recurrent hiatal hernia Long segment Mane's esophagus 29 cm to 37 cm from the incisors, 8 cm Hill grade 2 lower esophageal valve. LA grade D erosive esophagitis. No active duodenitis. Chronic gastritis RECOMMENDATIONS: 1. Repeat upper endoscopy in one year, 2021 2. Continue antacids for Mane's esophagus
--- NOTE | 2021-04-19 08:55 | P.PCN ---
Date of Procedure: 04/19/21 Description of Procedure: PREOPERATIVE DIAGNOSIS: Personal history of colon polyps POSTOPERATIVE DIAGNOSIS: Personal history of colon polyps Tubular adenoma descending colon Tubular adenoma sigmoid colon Rectal polyp Internal hemorrhoids, grade 2 OPERATION: Colonoscopy to the ileocecal valve and appendiceal orifice, cecum Colonoscopy with hot snare polypectomy SURGEON: Miri Mclean MD. ANESTHESIA: MAC. INDICATIONS: The patient is an 80-year-old male who presents personal history of colon poly ps. Last colonoscopy 5 years. Benefits and risks were described and informed consent was obtained. DESCRIPTION OF PROCEDURE: The patient had undergone Sutab prep. The patient had been brought into the operating room and laid in the left lateral decubitus position. After adequate intravenous sedation, the rectum was examined with 2% lidocaine jelly. The prostate was without nodularity. External hemorrhoids were encountered. The rectal tone was within normal limits. No lesions were palpated in the rectal vault. An Olympus colonoscope was advanced until the cecum, ileocecal valve and appendiceal orifice were clearly viewed. The prep was good. No large sigmoid diverticulosis was encountered. Colonic polyps were found and removed. No evidence of focal colitis was found. Retroflexion of the scope demonstrated grade 2 internal hemorrhoids without active bleeding or inflammation. The colon was desufflated. The patient had tolerated the procedure well. Withdrawal time was over 6 minutes. FINDINGS: Aronchick preparation quality scale 2 (1-5) Internal hemorrhoids, grade 2 External hemorrhoids, grade 2. No arteriovenous malformations. No large sigmoid diverticulosis Removal of 5 polyps: - Snare polypectomy 30 cm from the anal verge, 3 mm tubulovillous adenoma polyp, descending colon - Snare polypectomy 20 cm from the anal verge, 4 mm flat villous adenoma polyp, sigmoid colon - Snare polypectomy 15 x 2 cm from the anal verge, 4 to 5 mm flat villous adenoma polyp, sigmoid colon - Snare polypectomy 10 cm from the anal verge, 12 mm flat villous lipomatous polyp, rectum -No focal colitis. RECOMMENDATIONS: Repeat colonoscopy 3 years, 2023 Plan - Discharge Summary Discharge Rx Participant: No New Discharge Prescriptions: Continue Aspirin 81 mg PO DAILY Diltiazem HCl [Cardizem CD] 120 mg PO QAM Nitroglycerin Sl Tabs [Nitrostat] 0.4 mg SUBLINGUAL Q5M PRN PRN Reason: Chest Pain Finasteride [Proscar] 5 mg PO QAM Omeprazole 40 mg PO DAILY Isosorbide Mononitrate [Isosorbide Mononitrate ER] 30 mg PO PC-SUPPER Discharge Medication List Aspirin 81 mg PO DAILY 03/16/16 [History] Diltiazem HCl [Cardizem CD] 120 mg PO QAM 03/16/16 [History] Nitroglycerin Sl Tabs [Nitrostat] 0.4 mg SUBLINGUAL Q5M PRN 03/16/16 [History] Finasteride [Proscar] 5 mg PO QAM 04/14/21 [History] Isosorbide Mononitrate [Isosorbide Mononitrate ER] 30 mg PO PC-SUPPER 04/14/21 [History] Omeprazole 40 mg PO DAILY 04/14/21 [History] Follow up Appointment(s)/Referral(s): Miri Mclean MD [STAFF PHYSICIAN] - As Needed Patient Instructions/Handouts: Colorectal Polyps ([place]) Activity/Diet/Wound Care/Special Instructions: Repeat colonoscopy 3 years, 2023 Discharge Disposition: HOME SELF-CARE
[2021-04-19 09:06] VITALS: BP 115/70; PULSE 47; RESP 16
== END 2021-04-19 09:54 | disposition home or self-care (01) ==
LOC: ORWHC2ENDO 07:23
PROVIDERS: ATTEND Surgery Plastic and Reconstructive Surgery
DX: Z12.11 Encounter for screening for malignant neoplasm of colon (principal); Z86.010 Personal history of colon polyps; K22.70 Barrett's esophagus without dysplasia; K44.9 Diaphragmatic hernia without obstruction or gangrene; K29.50 Unspecified chronic gastritis without bleeding; K63.5 Polyp of colon; D17.79 Benign lipomatous neoplasm of other sites; K21.9 Gastro-esophageal reflux disease without esophagitis; G43.909 Migraine, unspecified, not intractable, without status migrainosus
CPT/HCPCS: 88305; 45385; 43239; J2001; J2704

== ENCOUNTER → 2021-04-19 | Outpatient (CLI) | payer MEDICARE, OTHER | END | disposition home or self-care (01) | LOC: RADUSWWP 10:01 | PROVIDERS: ATTEND Surgery Plastic and Reconstructive Surgery | DX: Z53.9 Procedure and treatment not carried out, unspecified reason (principal) ==

== ENCOUNTER → 2021-05-11 | Outpatient (CLI) | payer MEDICARE, OTHER ==
--- NOTE | 2021-05-11 08:31 | FL ---
EXAMINATION TYPE: FL barium swallow DATE OF EXAM: 05/11/2021 CLINICAL INDICATION: 80 year-old male K44.9, diaphragmatic hernia, patient complaining of acid reflux . There is a prior history of hiatal hernia repair 4 years ago. COMPARISON: 12/21/2016 Total Fluoroscopy Time: 2 minutes 45 seconds 54 images obtained. FINDINGS: The swallowing mechanism is normal. There is anterior endplate spondylosis at C3-C4 and C5-C6 causing mild to moderate posterior impressions onto the hypopharynx but no obstruction or significant narrow ing. Hypopharyngeal anatomy otherwise reserve. The thoracic portion has a normal course and caliber. There is mild dysmotility with blunted secondar y stripping waves and delayed clearance of contrast from the esophagus especially when the patient is prone or supine. The mucosa is normal and no persistent filling defect is encountered. There is a tiny hiatal hernia identified. Valsalva with turning maneuver elicits moderate gastroesoph ageal reflux. Incidentally, there is moderate fold thickening within the visualized gastric fundus. IMPRESSION: 1. Anterior endplate spondylosis C3-C4 and C5-C6 causing mild to moderate impressions on the posterio r wall of the hypopharynx. No obstruction. 2. Mild esophageal dysmotility. 3. Tiny hiatal hernia with moderate gastroesophageal reflux. 4. Moderate gastric fundal fold thickening. Suspect underlying gastritis. Direct visualization can fu rther assess.
== END | disposition home or self-care (01) ==
LOC: RADUSWWP 07:37
PROVIDERS: ATTEND Surgery Plastic and Reconstructive Surgery
DX: K21.9 Gastro-esophageal reflux disease without esophagitis (principal); K44.9 Diaphragmatic hernia without obstruction or gangrene; K22.4 Dyskinesia of esophagus
CPT/HCPCS: 74220

== ENCOUNTER 2022-04-10 08:22 | Emergency (ER) | payer MEDICARE, OTHER ==
[2022-04-10 08:28] VITALS: RESP 18; TEMP 98.4
[2022-04-10] MEDS ORDERED: LIDOCAINE URO-JET JELLY 2% 5 ML KIT URETHRAL ONE (10:03)
--- NOTE | 2022-04-10 10:16 | ED ---
General Adult HPI - General Chief complaint: Urogenital Stated complaint: trouble urinating Time Seen by Provider: 04/10/22 09:45 Source: patient Mode of arrival: ambulatory Limitations: no limitations - History of Present Illness Initial comments: 81-year-old male presents to the emergency room in discomfort with family complaining of urinary retention. He did see Dr. Whitfield yesterday around noon and had a Meraz catheter removed that was placed for urinary retention. Patient had cataract surgery on Saturday which they thought may have been the cause per family. Patient states that since 6:00 this morning he has been in able to urinate with increasing bladder pressure. Denies any fevers. -: hour(s) (4) Location: pelvis (Suprapubic) Radiation: non-radiation Severity scale (1-10): 6 Quality: constant, other (pressure) Associated Symptoms: denies other symptoms - Related Data Home Medications Medication Instructions Recorded Confirmed Aspirin 81 mg PO DAILY@1200 03/16/16 04/10/22 Nitroglycerin Sl Tabs [Nitrostat] 0.4 mg SUBLINGUAL Q5M PRN 03/16/16 04/10/22 dilTIAZem HCL [Cardizem CD] 120 mg PO DAILY 03/16/16 04/10/22 Omeprazole 40 mg PO DAILY 04/14/21 04/10/22 Cholecalciferol [Vitamin D3 (25 50 mcg PO DAILY 04/10/22 04/10/22 Mcg = 1000 Iu)] Multivitamins, Thera [Multivitamin 1 tab PO DAILY@1200 04/10/22 04/10/22 (formulary)] Tamsulosin [Flomax] 0.4 mg PO W/SUPPER 04/10/22 04/10/22 Allergies Allergy/AdvReac Type Severity Reaction Status Date / Time finasteride AdvReac Unknown Verified 04/10/22 10:38 xeroform Allergy Intermediate Nausea & Uncoded 04/10/22 08:28 Vomiting Review of Systems ROS Statement: Those systems with pertinent positive or pertinent negative responses have been documented in the HPI. ROS Other: All systems not noted in ROS Statement are negative. Past Medical History Past Medical History: GERD/Reflux, Prostate Disorder Additional Past Medical History / Comment(s): myocardial bridging, occ. 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) Past Anesthesia/Blood Transfusion Reactions: Motion Sickness Additional Past Anesthesia/Blood Transfusion Reaction / Comment(s): possible malignant hyperthermia, spouse states he had fever in post op and was "very slow to wake up" Past Psychological History: No Psychological Hx Reported Smoking Status: Never smoker - Past Family History Mother Family Medical History: No Reported History Father Family Medical History: Myocardial Infarction ([place]) General Exam Limitations: no limitations General appearance: alert, in no apparent distress Head exam: Present: atraumatic Respiratory exam: Present: normal lung sounds bilaterally. Absent: respiratory distress, accessory muscle use Cardiovascular Exam: Present: regular rate GI/Abdominal exam: Present: soft, distended (Bladder), tenderness (Suprapubic). Absent: rigid exam: Present: vertical testicular lie, circumcision. Absent: testicular tenderness, urethral discharge, scrotal swelling Extremities exam: Present: normal capillary refill. Absent: pedal edema Neurological exam: Present: alert, oriented X3 ([place]) Psychiatric exam: Present: normal affect, normal mood Skin exam: Present: warm, dry, normal color. Absent: cyanosis, diaphoretic, petechiae, pallor Course Vital Signs 04/10/22 08:23 Temperature 98.4 F Pulse Rate 63 Respiratory 18 Rate Blood Pressure 168/86 O2 Sat by Pulse 97 Oximetry Procedures - Catheter Insertion (Urinary) Indications: to alleviate urinary retention Prophylactic Antibiotics Given: No Bladder Scan/US before Catheterization: No (no functional bladder scanner) Type of Catheter Inserted: coude tip Catheter Burmese Size: 16 Catheter Balloon Size (mLs): 10 Topical Anesthesia Used: Yes (urojet) Results: successfully catheterized-immediate flow Patient Tolerated Procedure: no complications Complications: pain Medical Decision Making - Medical Decision Making Meraz catheter inserted with Urojet 16-Burmese coud for urinary retention. 500 mL of clear yellow urine was obtained. Patient states abdominal pain has resolved and he is feeling much better. His family member states that he is currently taking Flomax. He was discharged home to follow up with Dr. Whitfield this week. He was instructed to return to the emergency room for any new or concerning symptoms including increased pain, no drainage into the urinary catheter bag or fevers. Patient and family member agreeable to this plan of care. Disposition Clinical Impression: Urinary retention Disposition: HOME SELF-CARE Condition: Good Instructions (If sedation given, give patient instructions): Urinary Retention in Men (ED), Meraz Catheter Placement and Care (ED) Additional Instructions: Follow up with your urologist, Dr Whitfield this week. Return to the emergency room with any new or concerning symptoms including no drainage into the urinary catheter, increased pain or fevers. Is patient prescribed a controlled substance at d/c from ED?: No Referrals: Saurabh Jarquin MD [Primary Care Provider] - 1-2 days Filiberto Whitfield MD [STAFF PHYSICIAN] - 1-2 days Time of Disposition: 10:44
[2022-04-10 11:22] VITALS: BP 131/64; PULSE 55
== END 2022-04-10 11:20 | disposition home or self-care (01) ==
LOC: EC 08:22
DX: R33.9 Retention of urine, unspecified (principal); K21.9 Gastro-esophageal reflux disease without esophagitis; Z79.82 Long term (current) use of aspirin; Z79.899 Other long term (current) drug therapy
CPT/HCPCS: 51702; 99283

== ENCOUNTER → 2022-05-29 | Outpatient (CLI) | payer MEDICARE, OTHER ==
[2022-05-29 14:33] LABS: African American GFR (CKD) 64.7 (60.0-200.0); Anion Gap 7.7 mmol/L (10.00-18.00); BUN/Creat Ratio 13.8 Ratio (12.00-20.00); Blood Urea Nitrogen 16.7 mg/dL (9.0-27.0); Calcium 9.3 mg/dL (8.7-10.3); Carbon Dioxide 27.5 mmol/L (20.0-27.5); Non-African American GFR(CKD) 55.8 (60.0-200.0); Potassium 4.4 mmol/L (3.5-5.5)
[2022-05-29 14:39] LABS: Basophils # (A) 0.07 X 10*3/uL (0.00-0.10); Basophils % (A) 1.1 %; Eosinophils # (A) 0.19 X 10*3/uL (0.04-0.35); HCT 47.4 % (39.6-50.0); HGB 15.6 g/dL (13.0-17.0); Immature Grans, Automated 0.5 %; Lymphocytes # (A) 1.34 X 10*3/uL (0.90-5.00); Lymphocytes % (A) 21.3 %; MCH 31.1 pg (27.0-32.0); MCHC 32.9 g/dL (32.0-37.0); MCV 94.4 fL (80.0-97.0); Mean Platelet Volume 9.9 fL (9.5-12.2); Monocytes # (A) 0.48 X 10*3/uL (0.20-1.00); Monocytes % (A) 7.6 %; NRBC Per 100 WBC 0 /100 WBCS (0.0-0.0); Neutrophils # (A) 4.19 X 10*3/uL (1.80-7.70); Neutrophils % (A) 66.5 %; Platelet Count 325 X 10*3/uL (140-440); RBC 5.02 X 10*6/uL (4.40-5.60); RDW 13.1 % (11.5-14.5)
[2022-05-29 16:20] LABS: Appearance,Urine Clear (Clear); Bilirubin,Urine Negative (Negative); Blood,Urine Negative (Negative); Color,Urine Yellow (Yellow); Ketones,Urine Negative (Negative); Nitrite,Urine Negative (Negative); Specific Gravity,Urine 1.013 (1.001-1.030); Urobilinogen,Urine 0.2 (0.2,1.0)
== END | disposition home or self-care (01) ==
LOC: LABPAT 08:46
PROVIDERS: ATTEND Urology
DX: Z01.812 Encounter for preprocedural laboratory examination (principal); N40.1 Benign prostatic hyperplasia with lower urinary tract symptoms
CPT/HCPCS: 80048; 81003; 85025; 87086; 93005

== ENCOUNTER 2022-06-07 10:44 | Inpatient (IN) | payer MEDICARE, OTHER ==
[2022-06-06 08:36] VITALS: BMI 23.1
--- NOTE | 2022-06-06 13:41 | P.HPIHPCON ---
History of Present Illness Chief Complaint: urinary retention, BPH this is an 81-year-old male with history of urinary retention, has failed multi ple trial of void. He underwent a transrectal rectal ultrasound showed evidence of a 95 g prostate. Discussed with him given the prostate size the option of a robotic simple versus HoLEP risk and benefit of each approach were discussed in detail. He agreed to proceed with a robotic simple prostatectomy. Discussed the risk which includes but not limited to bleeding, infection, urinary incontinence, urethral stricture, erectile dysfunction, retrograde ejaculation. Persistent retention. Discussed also the risk of injury to nearby organs. Discussed also the risk of anesthesia, discussed given his age is at high risk of complication. He understood all the risk and agreed to proceed with a robotic simple prostatectomy Consent for Procedure: I have explained the operation/procedure to the patient, including the risks, benefits, side effects, alternative therapies (including not receiving the proposed treatment or service), the likelihood of the patient achieving his/her goals, and potential recuperation problems for the procedure/sedation/analgesia, as well as any blood products, if indicated. I also explained to the patient the risks, benefits and side effects of the alternatives, as well as the risks related to not receiving the proposed procedure, care, treatment, or services. Past Medical History Past Medical History: Cancer, GERD/Reflux, Prostate Disorder Additional Past Medical History / Comment(s): BPH-has milligan catheter in placed for 2 mos, UTI-tx w/ cipro,myocardial bridging, occ. 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),EGD Past Anesthesia/Blood Transfusion Reactions: Motion Sickness, Postoperative Nausea & Vomiting (PONV) Additional Past Anesthesia/Blood Transfusion Reaction / Comment(s): spouse states "he had fevers in post op and was "very slow to wake up", but was told by Anesthesiaologist was not malignant hyperthermia." No hx blood transfusion Smoking Status: Never smoker - Past Family History Mother Family Medical History: No Reported History Father Family Medical History: Myocardial Infarction ([place]) Brother(s) Family Medical History: Cancer Additional Family Medical History / Comment(s): had agent orange exposure. Medications and Allergies Home Medications Medication Instructions Recorded Confirmed Type Aspirin 81 mg PO DAILY@1200 03/16/16 06/06/22 History Nitroglycerin Sl Tabs [Nitrostat] 0.4 mg SUBLINGUAL Q5M PRN 03/16/16 06/06/22 History dilTIAZem HCL [Cardizem CD] 120 mg PO QAM 03/16/16 06/06/22 History Omeprazole 40 mg PO QAM 04/14/21 06/06/22 History Cholecalciferol [Vitamin D3 (25 50 mcg PO DAILY 04/10/22 06/06/22 History Mcg = 1000 Iu)] Multivitamins, Thera [Multivitamin 1 tab PO DAILY@1200 04/10/22 06/06/22 History (formulary)] Tamsulosin [Flomax] 0.4 mg PO QAM 04/10/22 06/06/22 History Allergies Allergy/AdvReac Type Severity Reaction Status Date / Time finasteride AdvReac Unknown Verified 06/06/22 08:18 xeroform Allergy Intermediate Nausea & Uncoded 06/06/22 08:18 Vomiting Surgical - Exam - General no distress, no pain - ENT normal nares, normal mucosa - Respiratory normal expansion, normal respiratory effort - Abdomen Abdomen: soft, non tender - Psychiatric oriented to time, oriented to person, oriented to place Assessment and Plan Assessment: OR for robotic simple prostatectomy
[~2022-06-07 10:44] MED LIST changes: +DEXAMETHASONE SOD PHOSPHATE 4 MG/ML 1 ML VIAL IV ONE; +HEPARIN SODIUM,PORCINE/PF 5,000 UNIT/0.5 ML SYRINGE SQ PRN; -LACTATED RINGERS 1,000 ML IV SCH; +ONDANSETRON 4 MG/2 ML VIAL IVP ONE; +ONDANSETRON 4 MG/2 ML VIAL IVP PRN
[2022-06-07] MEDS ORDERED: LACTATED RINGERS 1,000 ML IV ONE ×2 (11:51)
[2022-06-07] MEDS ORDERED: DEXAMETHASONE SOD PHOSPHATE 4 MG/ML 1 ML VIAL IVP ONE (11:52)
[2022-06-07] MEDS ORDERED: ONDANSETRON 4 MG/2 ML VIAL IVP ONE (11:52)
[2022-06-07] MEDS ORDERED: MIDAZOLAM 2 MG/2 ML VIAL IVP ONE (11:58)
[2022-06-07] MEDS ORDERED: fentaNYL (PF) 50 MCG/ML 2 ML AMP ONE (12:36)
[2022-06-07] MEDS ORDERED: HYDROmorphone (PF) 1 MG/ML ONE (12:36)
[2022-06-07] MEDS ORDERED: NEOSTIGMINE 1 MG/ML 10 ML VIAL ONE (12:36)
[2022-06-07] MEDS ORDERED: PROPOFOL 10 MG/ML 20 ML VIAL IV ONE (12:36)
[2022-06-07] MEDS ORDERED: ROPIVACAINE 5 MG/ML 30 ML VIAL ONE (12:36)
[2022-06-07] MEDS ORDERED: ROCURONIUM 10 MG/ML (5 ML VIAL) IV ONE (12:36)
[2022-06-07] MEDS ORDERED: SODIUM CHLORIDE 0.9% (PF) 10 ML VIAL ONE (12:36)
[2022-06-07] MEDS ORDERED: LIDOCAINE 2% INJ 20 MG/ML (2 ML VIAL) ONE (12:36)
[2022-06-07] MEDS ORDERED: KETAMINE 10 MG/ML 20 ML VIAL ONE (12:36)
[2022-06-07] MEDS ORDERED: GLYCOPYRROLATE 0.2 MG/ML 2 ML VIAL ONE (12:36)
[2022-06-07] MEDS ORDERED: MIDAZOLAM 2 MG/2 ML VIAL ONE (12:36)
[2022-06-07] MEDS ORDERED: NITROGLYCERIN SL TABS 0.4 MG TAB SUBLINGUAL PRN (12:53)
[2022-06-07] MEDS ORDERED: BUPIVACAINE (PF) 0.25% 30 ML VIAL SQ ONE ×2 (13:14→15:35)
--- NOTE | 2022-06-07 14:02 | P.ANPRN ---
Procedure Note - Anesthesia - Nerve Block Performed Bilateral Erector Spinae Time Out Performed: Yes (11:57) Date of Procedure: 06/07/22 Procedure Start Time: :57 Procedure Stop Time: 12:07 Location of Patient: PreOp Indication: Acute Post-Operative Pain, Requested by Surgeon (Dr Laureano) Sedation Type: Sedate with meaningful contact maintained Preparation: Sterile Prep Position: Prone Catheter: None Needle Types: Pajunk Needle Gauge: 21 Ultrasound used to visualize needle placement: Yes Ultrasound used to observe medication spread: Yes Injectate: 0.5% Ropivacaine (see comment for volume) (15cc +5cc PF Normal saline each side) Blood Aspirated: No Pain Paresthesia on Injection Noted: No Resistance on Injection: Normal Image Stored and Saved: Yes Events: Uneventful and Well Tolerated
--- NOTE | 2022-06-07 15:55 | P.OP ---
Date of Procedure: 06/07/22 Preoperative Diagnosis: BPH, urinary retention Postoperative Diagnosis: BPH, urinary retention Procedure(s) Performed: robotic simple prostatectomy Implants: none Anesthesia: FRANCESCA Surgeon: Mike Laureano Wool Fleece Grader #1: Fan Martínez Estimated Blood Loss (ml): 200 Pathology: other (prostate adenoma) Condition: stable Indications for Procedure: this is an 81-year-old male with history of urinary retention, has failed multiple trial of void. He underwent a transrectal rectal ultrasound showed evidence of a 95 g prostate. Discussed with him given the prostate size the option of a robotic simple versus HoLEP risk and benefit of each approach were discussed in detail. He agreed to proceed with a robotic simple prostatectomy. Discussed the risk which includes but not limited to bleeding, infection, urinary incontinence, urethral stricture, erectile dysfunction, retrograde ejaculation. Persistent retention. Discussed also the risk of injury to nearby organs. Discussed also the risk of anesthesia, discussed given his age is at high risk of complication. He understood all the risk and agreed to proceed with a robotic simple prostatectomy Operative Findings: Trilobar hyperplasia Description of Procedure: After preoperative antibiotics were started, the patient was taken to the operating room. Anesthesia was induced and the patient was placed in a supine position with adequate padding of the pressure points, shoulders, back, legs and arms. He was then prepped and draped in the standard fashion. A critical pause was performed using two patient identifiers. A 16F milligan catheter was placed to gravity drainage. A pneumoperitoneum was obtained using a Veress needle, after pneumoperitoneum was obtained a 8 mm camera port was placed. Under direct vision a 8mm robotic ports was placed lateral to each rectus slightly below the camera port. The left iliac fossa 8mm port was placed. The right railways assistant right iliac fossa 12mm port and right paramedian 5mm portwere placed. After the patient was placed in the trendelenberg position, the robot was then docked to the 8mm robotic ports and then each robotic arm and tower was checked in relation to the patient's legs and hands to avoid inadvertent compression. The peritoneal cavity was inspected. Adhesions were taken down along the left lower quadrant An inverted U-shaped incision began laterally to the left medial umbilical ligament and extended high across the midline to the right umbilical ligament. The limbs of the "U" extended to the level of the vasa on both sides. We next developed the preperitoneal space and the space of Retzius. Cautery was used to dissected the bladder away from the prostate, the incision was made in close proximity to the prostate, and incision was extended laterally and at this point the plane between the adenoma and the surgical capsule is identified. Both ureteral orifices were identified and neither was injured during the dissection . The adenoma was dissected off of the capsule by combination of blunt dissection and minimum cautery. dissection was initially started along the anterior surface and posterior surface of adenoma, and this was carried laterally. The dissection was carried to the apex, at this point the urethral-prostatic junction was visualized and the prostate was transected at the junction. Prostate adenoma was placed in an endocatch bag . A 9and 6 inch 3-0 V-Lock suture was used to anastomose the urethra and bladder, starting at the 6:00 posterior position. Mucosa was secured in every stitch, to ensure a mucosa to mucosa anastomosis. The stitch was regularly cinched and the anastomosis tightened. . The 18 Fr Milligan catheter was advanced, the bladder filled, and the anastomosis was tested. Anastomsis was watertight at 150 mL. balloon was inflated to 10 mL The robot was undocked. specimen was extracted from the supraumbilical incision. The periumbilical fascia was closed with 1-0-PDS suture in figure of 8 fashion. All ports were closed with a subcuticular 4-0 monocryl and Dermabond. Sponge, instrument, and needle counts were correct at the end of the case x2. The patient tolerated the surgery well and without complication. He awoke without difficulty and was taken to the recovery room in stable condition
[2022-06-07] MEDS: HYDROmorphone 0.5 MG/0.5 ML SYRINGE IVP PRN ×4 (16:07→19:16)
[2022-06-07] MEDS: LACTATED RINGERS 1,000 ML IV SCH (16:18)
[2022-06-07] MEDS ORDERED: HYDROmorphone 0.5 MG/0.5 ML SYRINGE IVP ONE (16:36)
[2022-06-07] MEDS: KETOROLAC 15 MG/ML 1 ML VIAL IVP SCH ×2 (17:56→23:40)
[2022-06-07] MEDS: D5-0.45% NACL WITH KCL 20MEQ/L 1,000 ML IV SCH ×2 (18:08→23:39)
[2022-06-07] MEDS: HYDROcodone/APAP 5-325MG 1 EACH TAB PO PRN (19:16)
[2022-06-07] MEDS: CIPROFLOXACIN 0.3% OPHTH SOLN 5 ML BTL LEFT EYE SCH ×2 (20:13→23:39)
[2022-06-08] MEDS: HYDROcodone/APAP 5-325MG 1 EACH TAB PO PRN (01:33)
[2022-06-08] MEDS: D5-0.45% NACL WITH KCL 20MEQ/L 1,000 ML IV SCH ×2 (01:40→11:58)
[2022-06-08] MEDS: CIPROFLOXACIN 0.3% OPHTH SOLN 5 ML BTL LEFT EYE SCH ×6 (04:55→23:49)
[2022-06-08] MEDS: LACTATED RINGERS 1,000 ML IV SCH (06:09)
[2022-06-08] MEDS: KETOROLAC 15 MG/ML 1 ML VIAL IVP SCH ×4 (06:17→23:48)
--- NOTE | 2022-06-08 08:00 | P.PN ---
Subjective Progress Note Date: 06/08/22 No acute overnight events, complaining of cough and congestion this morning. Urine is clear Objective - Vital Signs Vital signs: Vital Signs Temp 97.8 F 06/08/22 02:05 Pulse 76 06/08/22 02:05 Resp 17 06/08/22 02:05 BP 112/58 06/08/22 02:05 Pulse Ox 96 06/08/22 07:40 FiO2 Intake & Output 06/07/22 06/08/22 06/08/22 18:59 06:59 18:59 Intake Total 1350 1425 Output Total 650 525 Balance 700 900 Weight 75.3 kg Intake: IV 1350 Intake, IV Titration 1425 Amount D5-0.45% NaCl with KCl 1375 20Meq/l 1,000 ml @ 125 mls/hr IV .Q8H GISSELL Rx#: [id number] ceFAZolin 2 gm In Sodium 50 Chloride 0.9% 50 ml @ 100 mls/hr IVPB Q8H GISSELL Rx#: [id number] Oral 0 Output: Urine 450 525 Coude 525 Estimated Blood Loss 200 Other: Voiding Method Indwelling Catheter Indwelling Catheter - Constitutional General appearance: Present: no acute distress - Gastrointestinal General gastrointestinal: Present: soft, tenderness (Mild diffused) - Psychiatric Psychiatric: Present: A&O x's 3 Assessment and Plan Assessment: POD #1 S/P robotic simple prostatectomy -Medical consulted for medical management -We'll keep in the hospital for today, potential discharge home tomorrow
[2022-06-08] MEDS: PANTOPRAZOLE 40 MG TABLET PO SCH (08:27)
[2022-06-08] MEDS: DILTIAZEM CD 120 MG CAP.ER.24H PO SCH (08:27)
[2022-06-08] MEDS ORDERED: ACETAMINOPHEN TAB 325 MG TAB PO PRN (12:34)
--- NOTE | 2022-06-08 13:25 | P.HPIM ---
History of Present Illness H&P Date: 06/08/22 Patient is an 81-year-old male with PMH of hypertension, BPH the presents to [facility] for elective surgery. He underwent robotic simple prostatectomy. He has been admitted for observation overnight. [facility] has been consulted for medical management. Patient reports well- controlled pain in his lower abdomen. He currently has a Milligan catheter draining blood-tinged urine. His pain is well-controlled with Tylenol. He denies any nausea or vomiting. He denies any fever or chills. He denies any headache, lower extremity edema, cough, chest pain, shortness of breath, palpitations. He reports a decreased appetite. He denies any dizziness, numbness/weakness/tingling of the extremities. His vital signs are stable. General: [non toxic], [no distress], [appears at stated age] Derm: [warm], [dry] Head: [atraumatic], [normocephalic], [symmetric] Eyes: [EOMI], [no lid lag], [anicteric sclera] Mouth: [no lip lesion], [mucus membranes moist] Cardiovascular: [S1S2 reg], [no murmur], [positive DP pulse bilateral], Lungs: [CTA bilateral], [no rhonchi, no rales] , [no accessory muscle use] Abdominal: [soft], [ nontender to palpation], [no guarding], [Milligan catheter in place] Ext: [R hand chronic traumatic changes, surgically removed toes from BL LE], [no edema], [no contractures] Neuro: [no focal neuro deficits] Psych: [Alert], [oriented], [appropriate affect] Assessment and Plan BPH status post robotic simple prostatectomy POD 1 Hypertension GERD Management as per urology. Pain management with Toradol and Groom as needed. Continue diltiazem. Continue protonix. Obtain CBC and BMP tomorrow. Thank you for this consultation. Please call [facility] with additional questions or concerns. Past Medical History Past Medical History: Cancer, GERD/Reflux, Prostate Disorder Additional Past Medical History / Comment(s): BPH-has milligan catheter in placed for 2 mos, UTI-tx w/ cipro,myocardial bridging, occ. 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),EGD Past Anesthesia/Blood Transfusion Reactions: Motion Sickness, Postoperative Nausea & Vomiting (PONV) Additional Past Anesthesia/Blood Transfusion Reaction / Comment(s): spouse states "he had fevers in post op and was "very slow to wake up", but was told by Anesthesiaologist was not malignant hyperthermia." No hx blood transfusion Past Psychological History: No Psychological Hx Reported Smoking Status: Never smoker Past Alcohol Use History: None Reported Past Drug Use History: None Reported - Past Family History Mother Family Medical History: No Reported History Father Family Medical History: Myocardial Infarction ([place]) Brother(s) Family Medical History: Cancer Additional Family Medical History / Comment(s): had agent orange exposure. Medications and Allergies Home Medications Medication Instructions Recorded Confirmed Type Aspirin 81 mg PO DAILY@1200 03/16/16 06/07/22 History Nitroglycerin Sl Tabs [Nitrostat] 0.4 mg SUBLINGUAL Q5M PRN 03/16/16 06/07/22 History dilTIAZem HCL [Cardizem CD] 120 mg PO QAM 03/16/16 06/07/22 History Omeprazole 40 mg PO QAM 04/14/21 06/07/22 History Cholecalciferol [Vitamin D3 (25 50 mcg PO DAILY 04/10/22 06/07/22 History Mcg = 1000 Iu)] Multivitamins, Thera [Multivitamin 1 tab PO DAILY@1200 04/10/22 06/07/22 History (formulary)] Tamsulosin [Flomax] 0.4 mg PO QAM 04/10/22 06/07/22 History Allergies Allergy/AdvReac Type Severity Reaction Status Date / Time finasteride AdvReac Unknown Verified 06/07/22 11:05 xeroform Allergy Intermediate Nausea & Uncoded 06/07/22 11:05 Vomiting Physical Exam Vitals: Vital Signs Temp Pulse Resp BP Pulse Ox 06/08/22 08:39 99 F 73 16 126/61 96 06/08/22 07:40 96 06/08/22 02:05 97.8 F 76 17 112/58 96 06/07/22 21:39 61 117/67 06/07/22 19:30 86 144/69 06/07/22 19:00 78 129/72 06/07/22 18:45 83 146/79 06/07/22 18:30 73 131/76 91 L 06/07/22 18:15 77 129/73 91 L 06/07/22 18:00 76 132/74 88 L 06/07/22 17:45 71 117/72 91 L 06/07/22 17:30 62 125/67 94 L 06/07/22 17:16 71 16 140/70 96 06/07/22 17:00 70 16 141/68 95 06/07/22 16:45 67 16 147/70 95 06/07/22 16:30 70 16 142/71 95 06/07/22 16:15 73 16 140/63 97 06/07/22 16:00 74 16 147/57 97 06/07/22 15:50 97.7 F 90 14 130/61 97 Intake and Output 06/07/22 06/08/22 06/08/22 22:59 06:59 14:59 Intake Total 100 1425 540 Output Total 650 525 Balance -550 900 540 Intake: IV 100 Intake, IV Titration 1425 Amount D5-0.45% NaCl with KCl 1375 20Meq/l 1,000 ml @ 125 mls/hr IV .Q8H GISSELL Rx#: [id number] ceFAZolin 2 gm In Sodium 50 Chloride 0.9% 50 ml @ 100 mls/hr IVPB Q8H GISSELL Rx#: [id number] Oral 0 540 Output: Urine 450 525 Coude 525 Estimated Blood Loss 200 Other: Voiding Method Indwelling Catheter Indwelling Catheter Weight 75.3 kg Thrombosis Risk Factor Assmnt - Choose All That Apply Any of the Below Risk Factors Present?: Yes Other Risk Factors: Yes Each Risk Factor Represents 2 Points: Major surgery Each Risk Factor Represents 3 Points: Age 75 years or older Thrombosis Risk Factor Assessment Total Risk Factor Score: 5 Thrombosis Risk Factor Assessment Level: High Risk
[2022-06-08 20:43] VITALS: RESP 18
[2022-06-09] MEDS: LACTATED RINGERS 1,000 ML IV SCH (05:26)
[2022-06-09] MEDS: CIPROFLOXACIN 0.3% OPHTH SOLN 5 ML BTL LEFT EYE SCH ×3 (05:26→11:38)
[2022-06-09] MEDS: KETOROLAC 15 MG/ML 1 ML VIAL IVP SCH ×2 (05:27→11:38)
[2022-06-09] MEDS: DILTIAZEM CD 120 MG CAP.ER.24H PO SCH (07:04)
[2022-06-09] MEDS: PANTOPRAZOLE 40 MG TABLET PO SCH (07:04)
[2022-06-09 07:51] VITALS: BP 126/76; PULSE 64; TEMP 98.4
--- NOTE | 2022-06-09 10:11 | P.DS ---
Providers Date of admission: 06/07/22 10:44 Attending physician: Mike Laureano MD Consults: 06/08/22 07:40 Consult Physician Routine Consulting Provider: Melonie Rae Consult Reason/Comments: medical management Do you want consulting provider notified?: Yes Primary care physician: [facility] Hospital Course: This is an 81-year-old male with history of urinary retention he underwent a robotic simple prostatectomy on June 07. Please see op note dated June 07 for surgery detail. Patient was having some shortness of breath on postop day #1 which resolved on postoperative day #2. He was discharged home on postop day #2 with the Meraz catheter, at time of discharge he was tolerating a diet, ambulate, pain was well-controlled Plan - Discharge Summary Discharge Rx Participant: No New Discharge Prescriptions: New Cephalexin [Keflex] 500 mg PO Q8HR #9 cap traMADol HCl [Ultram] 50 mg PO Q6HR PRN 3 Days #10 tab PRN Reason: Pain No Action Aspirin 81 mg PO DAILY@1200 dilTIAZem HCL [Cardizem CD] 120 mg PO QAM Nitroglycerin Sl Tabs [Nitrostat] 0.4 mg SUBLINGUAL Q5M PRN PRN Reason: Chest Pain Cholecalciferol [Vitamin D3 (25 Mcg = 1000 Iu)] 50 mcg PO DAILY Tamsulosin [Flomax] 0.4 mg PO QAM Omeprazole 40 mg PO QAM Multivitamins, Thera [Multivitamin (formulary)] 1 tab PO DAILY@1200 Discharge Medication List Aspirin 81 mg PO DAILY@1200 03/16/16 [History] Nitroglycerin Sl Tabs [Nitrostat] 0.4 mg SUBLINGUAL Q5M PRN 03/16/16 [History] dilTIAZem HCL [Cardizem CD] 120 mg PO QAM 03/16/16 [History] Omeprazole 40 mg PO QAM 04/14/21 [History] Cholecalciferol [Vitamin D3 (25 Mcg = 1000 Iu)] 50 mcg PO DAILY 04/10/22 [History] Multivitamins, Thera [Multivitamin (formulary)] 1 tab PO DAILY@1200 04/10/22 [History] Tamsulosin [Flomax] 0.4 mg PO QAM 04/10/22 [History] Cephalexin [Keflex] 500 mg PO Q8HR #9 cap 06/08/22 [Rx] traMADol HCl [Ultram] 50 mg PO Q6HR PRN 3 Days #10 tab 06/08/22 [Rx] Activity/Diet/Wound Care/Special Instructions: No heavy lifting or straining Avoid heavy meals or greasy food Start your antibiotics one day prior to your follow-up Discharge Disposition: HOME SELF-CARE
[2022-06-09 11:28] LABS: HCT 41.8 % (39.6-50.0); HGB 13.8 g/dL (13.0-17.0); MCH 30.8 pg (27.0-32.0); MCV 93.3 fL (80.0-97.0); NRBC Per 100 WBC 0 /100 WBCS (0.0-0.0); Platelet Count 168 X 10*3/uL (140-440); RBC 4.48 X 10*6/uL (4.40-5.60); RDW 13.4 % (11.5-14.5); WBC 9.21 X 10*3/uL (4.50-10.00)
[2022-06-09 11:48] LABS: African American GFR (CKD) 74.2 (60.0-200.0); Anion Gap 9.2 mmol/L (10.00-18.00); BUN/Creat Ratio 18.98 Ratio (12.00-20.00); Blood Urea Nitrogen 20.5 mg/dL (9.0-27.0); Calcium 8.9 mg/dL (8.7-10.3); Carbon Dioxide 23.8 mmol/L (20.0-27.5); Potassium 4.4 mmol/L (3.5-5.5)
--- NOTE | 2022-06-09 12:46 | P.PN ---
Subjective Progress Note Date: 06/09/22 Patient was seen and examined. No acute events overnight. Meraz catheter with clean urine. Wants to go home. His vital signs are stable. General: [non toxic], [no distress], [appears at stated age] Derm: [warm], [dry] Head: [atraumatic], [normocephalic], [symmetric] Eyes: [EOMI], [no lid lag], [anicteric sclera] Mouth: [no lip lesion], [mucus membranes moist] Cardiovascular: [S1S2 reg], [no murmur], [positive DP pulse bilateral], Lungs: [CTA bilateral], [no rhonchi, no rales] , [no accessory muscle use] Abdominal: [Meraz catheter in place] Ext: [R hand chronic traumatic changes, surgically removed toes from BL LE], [no edema], [no contractures] Neuro: [no focal neuro deficits] Psych: [Alert], [oriented], [appropriate affect] Assessment and Plan BPH status post robotic simple prostatectomy POD 2 Hypertension GERD Management as per urology. Pain management with Toradol and [place] as needed. Continue diltiazem. Continue protonix. Medically stable for discharge. Thank you for this consultation. Please call [facility] with additional questions or concerns. Objective - Vital Signs Vital signs: Vital Signs Temp 98.4 F 06/09/22 07:50 Pulse 64 06/09/22 07:50 Resp 18 06/09/22 07:50 BP 126/76 06/09/22 07:50 Pulse Ox 94 L 06/09/22 07:50 FiO2 Intake & Output 06/08/22 06/09/22 06/09/22 18:59 06:59 18:59 Intake Total 540 Output Total 700 1050 525 Balance -160 -1050 -525 Intake: Oral 540 Output: Urine 700 1050 525 Coude 700 Other: Voiding Method Indwelling Catheter Indwelling Catheter Indwelling Catheter - Labs CBC & Chem 7: 06/09/22 06:20 06/09/22 06:20 Labs: Abnormal Lab Results - Last 24 Hours (Table) 06/09/22 Range/Units 06:20 Anion Gap 9.20 L (10.00-18.00) mmol/L
== END 2022-06-09 11:46 | disposition home or self-care (01) | DRG 708 ==
LOC: 2ORMAIN 10:44 → 4SSUR 16:25
PROVIDERS: ADMIT Urology; ATTEND Urology
PROC: 8E0W4CZ Robotic Assisted Procedure of Trunk Region, Percutaneous Endoscopic Approach (ICD-10-PCS; principal; 2022-06-07 12:30)
PROC: 0VT04ZZ Resection of Prostate, Percutaneous Endoscopic Approach (ICD-10-PCS; principal; 2022-06-07 12:30)
DX: N40.1 Benign prostatic hyperplasia with lower urinary tract symptoms (principal); I10 Essential (primary) hypertension; K21.9 Gastro-esophageal reflux disease without esophagitis; K22.70 Barrett's esophagus without dysplasia; R31.0 Gross hematuria; G43.909 Migraine, unspecified, not intractable, without status migrainosus; R33.8 Other retention of urine; Z79.82 Long term (current) use of aspirin; Z82.49 Family history of ischemic heart disease and other diseases of the circulatory system; Z89.029 Acquired absence of unspecified finger(s); Z89.021 Acquired absence of right finger(s); Z94.89 Other transplanted organ and tissue status; Z87.440 Personal history of urinary (tract) infections
CPT/HCPCS: 64999; 80048; 85027; 86850; 86900; 86901; 94760

== ENCOUNTER 2024-07-09 07:02 | Day surgery (SDC) | payer MEDICARE, OTHER ==
[2024-07-08 12:54] VITALS: BMI 23.1
[2024-07-09 07:24] VITALS: TEMP 97
[2024-07-09] MEDS ORDERED: LACTATED RINGERS 1,000 ML IV STA (07:34)
[2024-07-09] MEDS: IV FLUID CONTINUATION 1,000 ML IV ONE (07:34)
[2024-07-09] MEDS ORDERED: LIDOCAINE 1% INJ 10MG/ML (20 ML MDV) ONE (07:39)
[2024-07-09] MEDS ORDERED: PROPOFOL 10 MG/ML 20 ML VIAL IV ONE (07:39)
--- NOTE | 2024-07-09 08:01 | P.GSHP ---
History of Present Illness H&P Date: 07/09/24 CHIEF COMPLAINT: GERD and colon screen HISTORY OF PRESENT ILLNESS: The patient is a 83-year-old male who presents with gastroesophageal reflux disease and need for colon screen. Upper and lower endoscopy were offered for further evaluation and management. PAST MEDICAL HISTORY: Please see list. PAST SURGICAL HISTORY: Please see list. MEDICATIONS: Please see list. ALLERGIES: Please see list. SOCIAL HISTORY: No illicit drug use FAMILY HISTORY: No reports of Crohn disease or ulcerative colitis. REVIEW OF ORGAN SYSTEMS: CONSTITUTIONAL: No reports of fevers or chills. GI: Denies any blood in stools or constipation. PHYSICAL EXAM: VITAL SIGNS: Stable GENERAL: Well-developed pleasant in no acute distress. HEENT: No scleral icterus. Extraocular movements grossly intact. Moist buccal mucosa. NECK: Supple without lymphadenopathy. CHEST: Unlabored respirations. Equal bilateral excursions. CARDIOVASCULAR: Regular rate and rhythm. Distal 2+ pulses. ABDOMEN: Soft, nondistended. MUSCULOSKELETAL: No clubbing, cyanosis, or edema. ASSESSMENT: 1. Gastroesophageal reflux disease 2. Colon screen. PLAN: 1. Recommend proceeding with an upper and lower endoscopy Past Medical History Past Medical History: GERD/Reflux, Prostate Disorder Additional Past Medical History / Comment(s): myocardial bridging, occ. 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 Past Anesthesia/Blood Transfusion Reactions: Motion Sickness Additional Past Anesthesia/Blood Transfusion Reaction / Comment(s): possible malignant hyperthermia, spouse states he had fever in post op and was "very slow to wake up". Had surgery since and has not had any Smoking Status: Never smoker - Past Family History Mother Family Medical History: No Reported History Father Family Medical History: Myocardial Infarction ([place]) Brother(s) Family Medical History: Cancer Additional Family Medical History / Comment(s): had agent orange exposure. Medications and Allergies Home Medications Medication Instructions Recorded Confirmed Type Nitroglycerin Sl Tabs [Nitrostat] 0.4 mg SUBLINGUAL Q5M PRN 03/16/16 07/09/24 History dilTIAZem HCL [Cardizem CD] 120 mg PO QAM 03/16/16 07/09/24 History Omeprazole 40 mg PO QAM 04/14/21 07/09/24 History Cholecalciferol [Vitamin D3 (25 50 mcg PO DAILY 04/10/22 07/09/24 History Mcg = 1000 Iu)] Multivitamins, Thera [Multivitamin 1 tab PO DAILY@1200 04/10/22 07/09/24 History (formulary)] Allergies Allergy/AdvReac Type Severity Reaction Status Date / Time finasteride AdvReac Unknown Verified 07/09/24 07:21 xeroform Allergy Intermediate Nausea & Uncoded 07/09/24 07:21 Vomiting Surgical - Exam Vital Signs Temp Pulse Resp BP Pulse Ox 97 F L 60 18 183/81 97 07/09/24 07:23 07/09/24 07:23 07/09/24 07:23 07/09/24 07:23 07/09/24 07:23
--- NOTE | 2024-07-09 08:03 | P.PCN ---
Date of Procedure: 07/09/24 Description of Procedure: PREOPERATIVE DIAGNOSIS: Mane's disease Dysphagia POSTOPERATIVE DIAGNOSIS: Mane's esophagus Diaphragmatic hiatal hernia Gastritis, chronic OPERATION: Esophagogastroduodenoscopy with biopsies along esophagus, antrum and duodenum SURGEON: Miri Mclean MD ANESTHESIA: MAC. INDICATIONS: The patient is a 83-year-old male who presents with Mane's esophagus, dysphagia and reflux disease. Benefits and risks of the procedure were described. Informed consent was obtained. DESCRIPTION: The patient was brought into the endoscopy suite and laid in the left lateral decubitus position. An Olympus gastroscope was passed along the posterior oropharynx down to the distal esophagus where the squamocolumnar junction was encountered at 40 cm from the incisors. The stomach was entered and no bile reflux was found. Additional findings are listed below. Biopsies with cold f orceps were obtained of the antrum. The first through third portion of the duodenum was examined. Retroflexion of the scope confirmed Hill grade 2 lower esophageal valve. The squamocolumnar junction demonstrated LA grade D erosive esophagitis. The stomach was desufflated. The patient tolerated the procedure well. FINDINGS: Squamocolumnar junction 30 cm from the incisors. Diaphragmatic hiatus at 40 cm. Hiatal hernia, 1 cm Hill grade 2 lower esophageal valve. LA grade D erosive esophagitis, long segment 10 cm with biopsies obtained Biopsies obtained of the duodenum. Chronic gastritis with biopsies obtained. RECOMMENDATIONS: Repeat upper endoscopy 3 years, 2026 Continue antiacid therapy omeprazole 40 mg daily
--- NOTE | 2024-07-09 08:18 | P.PCN ---
Date of Procedure: 07/09/24 Description of Procedure: PREOPERATIVE DIAGNOSIS: Colonoscopy screening. History of colon polyp POSTOPERATIVE DIAGNOSIS: Colonoscopy screening. Diverticulosis, scattered. OPERATION: Colonoscopy to the cecum, ileocecal valve and appendiceal orifice. SURGEON: Miri Mclean MD. ANESTHESIA: MAC. INDICATIONS: The patient is a 83-year-old female who presents for colonoscopy screening. Benefits and risks were described and informed consent was obtained. DESCRIPTION OF PROCEDURE: The patient had undergone GoLytely prep. The patient had been brought into the operating room and laid in the left lateral decubitus position. After adequate intravenous sedation, the rectum was examined with 2% lidocaine jelly. External hemorrhoids were encountered. The rectal tone was within normal limits. No lesions were palpated in the rectal vault. An Olympus colonoscope was advanced until the cecum, ileocecal valve and appendiceal orifice were clearly viewed. The prep was excellent. Scattered diverticulosis was encountered. No colonic polyps were found. No evidence of focal colitis was found. Retroflexion of the scope demonstrated grade 3 internal hemorrhoids without active bleeding or inflammation. The colon was desufflated. The patient had tolerated the procedure well. Withdrawal time was over 6 minutes. FINDINGS: Aronchick preparation quality scale 1+ (1-5) Internal hemorrhoids, grade 1 External prolapsed hemorrhoids, grade 3 No arteriovenous malformations. No adenomatous polyps. No focal colitis. Moderate sigmoid diverticulosis RECOMMENDATIONS: Lower endoscopy in 5 years, 2028 Plan - Discharge Summary Discharge Rx Participant: Yes New Discharge Prescriptions: Continue dilTIAZem HCL [Cardizem CD] 120 mg PO QAM Nitroglycerin Sl Tabs [Nitrostat] 0.4 mg SUBLINGUAL Q5M PRN PRN Reason: Chest Pain Cholecalciferol [Vitamin D3 (25 Mcg = 1000 Iu)] 50 mcg PO DAILY Omeprazole 40 mg PO QAM Multivitamins, Thera [Multivitamin (formulary)] 1 tab PO DAILY@1200 Discharge Medication List Nitroglycerin Sl Tabs [Nitrostat] 0.4 mg SUBLINGUAL Q5M PRN 03/16/16 [History] dilTIAZem HCL [Cardizem CD] 120 mg PO QAM 03/16/16 [History] Omeprazole 40 mg PO QAM 04/14/21 [History] Cholecalciferol [Vitamin D3 (25 Mcg = 1000 Iu)] 50 mcg PO DAILY 04/10/22 [History] Multivitamins, Thera [Multivitamin (formulary)] 1 tab PO DAILY@1200 04/10/22 [History] Follow up Appointment(s)/Referral(s): Miri Mclean MD [STAFF PHYSICIAN] - As Needed Patient Instructions/Handouts: Mane Esophagus (DC), Diverticulosis (GEN), Diverticulosis Diet (GEN) Activity/Diet/Wound Care/Special Instructions: Repeat colonoscopy 3 years, 2026 Discharge Disposition: HOME SELF-CARE
[2024-07-09 08:20] VITALS: RESP 16
[2024-07-09 08:36] VITALS: BP 147/68; PULSE 67
== END 2024-07-09 09:10 | disposition home or self-care (01) ==
LOC: ORWHC2ENDO 07:02
PROVIDERS: ATTEND Surgery Plastic and Reconstructive Surgery
DX: D12.6 Benign neoplasm of colon, unspecified
CPT/HCPCS: 43239; 45378; 88305